=== PATIENT | female | born 1970 | race Caucasian/White ===

== ENCOUNTER 2017-01-31 10:04 | Day surgery (SDC) | payer BC, OTHER ==
[~2017-01-31 10:04] MED LIST: Lactated Ringers 1,000 ML IV SCH; Lidocaine 1%/Sod Bicarbonate in NS 8.4% 1 ML Syringe PRN; Sodium Chloride 0.9% 10 ML Syringe FLUSH PRN
[2017-01-31] MEDS ORDERED: Lidocaine 1% 4 ML ONE (11:36)
[2017-01-31] MEDS ORDERED: Propofol 200 MG/20 ML SDV ONE (11:36)
[2017-01-31] MEDS ORDERED: fentaNYL 100 MCG/2 ML SDV ONE (11:37)
[2017-01-31] MEDS ORDERED: Midazolam 1 MG/ML 2 ML SDV ONE (11:37)
--- NOTE | 2017-01-31 11:43 | PCM.PREANE ---
Preanesthetic Assessment - Anesthesia/Transfusion/Family Hx Anesthesia History: Prior Anesthesia Without Reaction Family History of Anesthesia Reaction: No Transfusion History: No Prior Transfusion(s) Intubation History: Unknown - Review of Systems General: No Symptoms Pulmonary: No Symptoms (history of asthma) Cardiovascular: No Symptoms Gastrointestinal: Difficulty swallowing (on occasion.) Neurological: No Symptoms (benign intracranial htn currently taking diomox.) Other: Reports: None - Physical Assessment NPO Status Date: 01/30/17 NPO Status Time: 20:00 Pulse: 62 O2 Sat by Pulse Oximetry: 96 Respiratory Rate: 18 Blood Pressure: 108/65 Temperature: 37.3 C Vital Signs: Last Vital Signs Temp 37.3 C 01/31/17 10:25 Pulse 62 01/31/17 10:25 Resp BP 108/65 01/31/17 10:25 Pulse Ox 96 01/31/17 10:25 Height: 1.68 m Weight: 122.924 kg ASA Class: 2 Mental Status: Alert & Oriented x3 Airway Class: Mallampati = 2 Dentition: Reports: Normal Dentition, Caries Thyro-Mental Finger Breadths: 3 Mouth Opening Finger Breadths: 3 ROM/Head Extension: Full Lungs: Clear to auscultation, Normal respiratory effort Cardiovascular: Regular Rate, Regular Rhythm, No Murmurs - Imaging/EKG Impressions: EKG: sinus rhythm rate= 61 - Allergies Allergies/Adverse Reactions: Allergies Allergy/AdvReac Type Severity Reaction Status Date / Time nut - unspecified Allergy Anaphylactic Verified 01/31/17 10:34 Shock - Anesthesia Plan Pre-Op Medication Ordered: None - Acknowledgements Anesthesia Type Planned: MAC Pt an Appropriate Candidate for the Planned Anesthesia: Yes Alternatives and Risks of Anesthesia Discussed w Pt/Guardian: Yes Pt/Guardian Understands and Agrees with Anesthesia Plan: Yes PreAnesthesia Questionnaire HEENT History: Reports: Allergic Rhinitis Cardiovascular History: Reports: None Respiratory History: Reports: Asthma, Bronchitis, Recurrent Gastrointestinal History: Reports: None 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: Musculoskeletal History: Reports: None Neurological History: Reports: Other (See Below) Other Neuro History: benign intracranial hypertension, pseudotumor cerebri Psychiatric History: Reports: None Endocrine/Metabolic History: Reports: Obesity/BMI 30+ Hematologic History: Reports: None Immunologic History: Reports: None Oncologic (Cancer) History: Reports: None Dermatologic History: Reports: None - Past Surgical History Head Surgeries/Procedures: Reports: None HEENT Surgical History: Reports: LASIK GI Surgical History: Reports: None Female Surgical History: Reports: Breast Reduction, Hysterectomy - SUBSTANCE USE Smoking Status *Q: Never Smoker Recreational Drug Use History: No - HOME MEDS Home Medications: Home Meds Albuterol [IJD: Ventolin HFA] 2 puff INH Q4H PRN 01/30/17 [History] Fluticasone/Salmeterol [Advair Diskus 100-50] 1 puff INH BID 01/30/17 [History] acetaZOLAMIDE [Diamox] 250 mg PO DAILY 01/30/17 [History] - CURRENT (IN HOUSE) MEDS Current Meds: Current Medications Lactated Ringer's (Ringers, Lactated) 1,000 mls @ 125 mls/hr IV ASDIRECTED CATRACHITO Stop: 01/31/17 23:00 Last Admin: 01/29/17 11:45 Dose: 125 mls/hr Lidocaine/Sodium Bicarbonate (Buffered Lidocaine 1% In Ns 8.4%) 0.25 ml .XX ONETIME PRN PRN Reason: Prior to IV Start Stop: 01/31/17 18:00 Sodium Chloride (Saline Flush) 10 ml FLUSH ASDIRECTED PRN PRN Reason: Keep Vein Open Stop: 01/31/17 18:00 Discontinued Medications Fentanyl (Sublimaze) Confirm Administered Dose 100 mcg .ROUTE .STK-MED ONE Stop: 01/31/17 11:38 Lidocaine HCl (Xylocaine-Mpf 1%) Confirm Administered Dose 4 mls @ as directed .ROUTE .STK-MED ONE Stop: 01/31/17 11:37 Midazolam HCl (Versed 1 Mg/Ml) Confirm Administered Dose 2 mg .ROUTE .STK-MED ONE Stop: 01/31/17 11:38 Propofol (Diprivan 20 Ml) Confirm Administered Dose 200 mg .ROUTE .STK-MED ONE Stop: 01/31/17 11:37
--- NOTE | 2017-01-31 12:19 | PCM48HPAN ---
Post Anesthesia Note - EVALUATION WITHIN 48HRS OF ANESTHETIC Vital Signs in Normal Range: Yes Patient Participated in Evaluation: Yes Respiratory Function Stable: Yes Airway Patent: Yes Cardiovascular Function Stable: Yes Hydration Status Stable: Yes Pain Control Satisfactory: Yes Nausea and Vomiting Control Satisfactory: Yes Mental Status Recovered: Yes
[2017-01-31 12:20] VITALS: BP 110/43
--- NOTE | 2017-01-31 12:25 | PCM.OPNOTE ---
- General Post-Op/Procedure Note Date of Surgery/Procedure: 01/31/17 Operative Procedure(s): Diagnostic EGD with cold forceps biopsy Pre Op Diagnosis: Dysphagia, choking episodes Post-Op Diagnosis: Gastritis Anesthesia Technique: MAC Primary Surgeon: Tracey Luo Anesthesia Provider: Sia Elliott Pathology: 1. Small bowel biopsy 2. Antral biopsy 3. Distal esophageal biopsy Fluid Replacement, Intraop: 600 (mL crystalloid ) EBL in mLs: 1 Complications: None Condition: Good Free Text/Narrative:: INDICATION OF PROCEDURE: The patient is a 46-year-old woman who is referred to me by Dr. Dione Amado for evaluation of dysphagia and choking episodes. EGD had been discussed with the patient and risks of the associated procedure. She is not currently taking a PPI. The patient found these risks acceptable and agreed to proceed. DESCRIPTION OF PROCEDURE: The patient was taken to the operating room and placed in the left lateral decubitus position. After induction of adequate sedation, a bite block was placed. A standard Olympus gastroscope was inserted into the oropharynx and guided down the esophagus without difficulty. The gastroesophageal junction was appreciated at 40 cm from the teeth. There was no evidence of stricture or esophageal ulcerations. The scope was advanced into the stomach, and there was mild gastritis around the antrum. The scope was passed into the proximal jejunum and the duodenum which were unremarkable. There were no petechiae or ulcerations. The proximal jejunum was grossly normal in appearance. Multiple cold forceps biopsies were obtained of the proximal jejunum and duodenum. The scope was withdrawn into the antrum, and additional cold forceps biopsies were obtained. The remainder of the gastric body was examined, and there were no further abnormalities. The scope was retroflexed, and there was no evidence of hiatal hernia. The scope was straightened and withdrawn to the GE junction. Additional cold forceps biopsies were obtained of the distal esophagus. The scope was withdrawn through the remainder of the esophagus and no further abnormalities were noted. The posterior oropharynx was grossly normal in appearance. The scope was then fully withdrawn. The patient was awakened from sedation and transferred to the recovery room in stable condition having tolerated the procedure well. POSTOPERATIVE PLAN: I discussed with the patient's my intraoperative findings and postoperative recommendations. The patient will follow up in approximately 2 weeks to discuss their pathology and how their symptoms are progressing. The patient is to start Prilosec daily and a GERD/gastritis diet. If for some reason her esophageal biopsies are completely unremarkable, as I do suspect eosinophilic esophagitis, I would recommend performing an esophagram. The patient is to call with any worsening of symptoms or questions prior to appointment.
== END 2017-01-31 13:00 | disposition home or self-care (01) ==
LOC: JD.SDS 10:04
PROVIDERS: ATTEND Surgery
DX: K29.70 Gastritis, unspecified, without bleeding (principal); R13.10 Dysphagia, unspecified; R09.89 Other specified symptoms and signs involving the circulatory and respiratory systems; J45.909 Unspecified asthma, uncomplicated; Z91.018 Allergy to other foods
CPT/HCPCS: 43239; 88305; 93005; J2250; J3010; J7120; J2704

== ENCOUNTER 2017-05-18 09:18 | Day surgery (SDC) | payer BC ==
[~2017-05-18 09:18] MED LIST changes: +Lidocaine 1% 50 ML MDV ONE
--- NOTE | 2017-05-18 10:19 | PCM.PREANE ---
Preanesthetic Assessment - Procedure Proposed Procedure: Open primary repair of left ruptured achilles tendon - Anesthesia/Transfusion/Family Hx Anesthesia History: Prior Anesthesia Without Reaction Type of Anesthesia Reaction: Other (see below) (patient was told with her last general anesthetic that she has a very difficult time breathing during surgery and during emergence about 13 years ) Family History of Anesthesia Reaction: No Transfusion History: No Prior Transfusion(s) Intubation History: Unknown - Review of Systems General: No Symptoms Pulmonary: Other (asthma) Cardiovascular: Other (mitral valve regurg) Gastrointestinal: No Symptoms Neurological: Other (intracranial HTN) Other: Reports: None - Physical Assessment NPO Status Date: 05/17/17 NPO Status Time: 21:00 Pulse: 66 O2 Sat by Pulse Oximetry: 100 Respiratory Rate: 16 Blood Pressure: 135/74 Temperature: 36.4 C Height: 1.68 m Weight: 121.109 kg ASA Class: 2 Mental Status: Alert & Oriented x3 Airway Class: Mallampati = 1 Dentition: Reports: Normal Dentition Thyro-Mental Finger Breadths: 3 Mouth Opening Finger Breadths: 3 ROM/Head Extension: Full Lungs: Clear to Auscultation, Normal Respiratory Effort Cardiovascular: Regular Rate, Regular Rhythm - Allergies Allergies/Adverse Reactions: Allergies Allergy/AdvReac Type Severity Reaction Status Date / Time nut - unspecified Allergy Anaphylactic Verified 05/17/17 13:59 Shock - Blood Blood Available: No Product(s) Available: None - Anesthesia Plan Pre-Op Medication Ordered: None - Acknowledgements Anesthesia Type Planned: Spinal (patient prefers spinal anesthetic due to hx of breathing problems post general anesthetic. Pt very insistent on spinal and is aware of longer recovery time. 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: Musculoskeletal History: Reports: None Neurological History: Reports: Other (See Below) Other Neuro History: benign intracranial hypertension, pseudotumor cerebri Psychiatric History: Reports: None Endocrine/Metabolic History: Reports: Obesity/BMI 30+ Hematologic History: Reports: None Immunologic History: Reports: None Oncologic (Cancer) History: Reports: None Dermatologic History: Reports: None - Past Surgical History Head Surgeries/Procedures: Reports: None HEENT Surgical History: Reports: LASIK Cardiovascular Surgical History: Reports: None Respiratory Surgical History: Reports: None GI Surgical History: Reports: None, EGD Female Surgical History: Reports: Breast Reduction, Hysterectomy Male Surgical History: Reports: None Endocrine Surgical History: Reports: None Musculoskeletal Surgical History: Reports: None Oncologic Surgical History: Reports: None Dermatological Surgical History: Reports: None - SUBSTANCE USE Smoking Status *Q: Never Smoker Second Hand Smoke Exposure: No Recreational Drug Use History: No - HOME MEDS Home Medications: Home Meds Albuterol [IJD: Ventolin HFA] 2 puff INH Q4H PRN 01/30/17 [History] Fluticasone/Salmeterol [Advair Diskus 100-50] 1 puff INH BID 01/30/17 [History] acetaZOLAMIDE [Diamox] 250 mg PO DAILY 01/30/17 [History] EPINEPHrine [Epipen] 1 dose IM ASDIRECTED PRN 05/17/17 [History] - CURRENT (IN HOUSE) MEDS Current Meds: Current Medications Lactated Ringer's (Ringers, Lactated) 1,000 mls @ 125 mls/hr IV ASDIRECTED CATRACHITO Stop: 05/18/17 23:00 Lidocaine/Sodium Bicarbonate (Buffered Lidocaine 1% In Ns 8.4%) 0.25 ml .XX ONETIME PRN PRN Reason: Prior to IV Start Stop: 05/18/17 18:00 Sodium Chloride (Saline Flush) 10 ml FLUSH ASDIRECTED PRN PRN Reason: Keep Vein Open Stop: 05/18/17 18:00 Discontinued Medications Bupivacaine HCl (Marcaine 0.5%) Confirm Administered Dose 30 ml .ROUTE .STK-MED ONE Stop: 05/18/17 09:19 Lidocaine HCl (Xylocaine 1%) Confirm Administered Dose 50 ml .ROUTE .STK-MED ONE Stop: 05/18/17 09:19
[2017-05-18] MEDS ORDERED: fentaNYL 100 MCG/2 ML SDV ONE ×2 (10:53→13:31)
[2017-05-18] MEDS ORDERED: Propofol 200 MG/20 ML SDV ONE ×3 (10:53→13:04)
[2017-05-18] MEDS ORDERED: Midazolam 1 MG/ML 2 ML SDV ONE (10:53)
[2017-05-18] MEDS: Bupivacaine 0.5% 30 ML SDV ONE ×2 (11:50→13:23)
[2017-05-18] MEDS ORDERED: Lactated Ringers 1,000 ML ONE (11:51)
[2017-05-18] MEDS ORDERED: HYDROmorphone 0.5 MG/0.5 ML Syringe IVPUSH PRN (13:15)
[2017-05-18] MEDS ORDERED: fentaNYL 100 MCG/2 ML SDV IVPUSH PRN (13:15)
[2017-05-18] MEDS ORDERED: Ondansetron 4 MG/2 ML SDV IVPUSH PRN (13:15)
[2017-05-18] MEDS ORDERED: Ondansetron 4 MG/2 ML SDV ONE (13:31)
--- NOTE | 2017-05-18 13:42 | PCM.POSTAN ---
POST ANESTHESIA ASSESSMENT - MENTAL STATUS Mental Status: Alert, Oriented - VITAL SIGNS Pulse Rate: 72 SaO2: 95 Resp Rate: 14 Blood Pressure: 118/74 Temperature: 36.6 C - RESPIRATORY Respiratory Status: Respiratory Rate WNL, Airway Patent, O2 Saturation Stable - CARDIOVASCULAR CV Status: Pulse Rate WNL, Blood Pressure Stable - GASTROINTESTINAL GI Status: No Symptoms - PAIN Pain Score: 0 - POST OP HYDRATION Hydration Status: Adequate & Stable
[2017-05-18] MEDS ORDERED: Acetaminophen/HYDROcodone 325-5 MG Tab PO PRN (14:20)
[2017-05-18 15:14] VITALS: BP 107/58
--- NOTE | 2017-05-22 13:39 | OR ---
DATE OF OPERATION: 05/18/2017 SURGEON: Kareem Spicer II, DPM LOCATION: [facility]. ANESTHESIA: Spinal with local block about the left Achilles tendon. ANESTHESIA PROVIDER: Kirit Crabtree CRNA. HEMOSTASIS: Left pneumatic thigh tourniquet at 300 mmHg pressure. PREOPERATIVE DIAGNOSIS: Painful and symptomatic acute spontaneous Achilles tendon rupture, left lower extremity. POSTOPERATIVE DIAGNOSIS: Painful and symptomatic acute spontaneous Achilles tendon rupture, left lower extremity. OPERATION PERFORMED: Open primary repair of Achilles tendon rupture, left ankle, with Graftjacket allograft. DESCRIPTION OF PROCEDURE: Upon arrival and admission to the hospital, the patient was examined and cleared for surgery by the assigned anesthesia provider. IV access was obtained in the preoperative area, where the patient received prophylactic antibiotics consisting of 3 grams of Ancef IV piggyback. The patient was then brought back to the OR via gurney and assisted with transfer onto the operating room table in the supine position. The patient was then prepared for spinal anesthesia. She was then seated in the upright position. After spinal anesthesia had been achieved, the patient was given a combination of sedations and was adequately sedated after she had been situated in the prone position for the surgery. The patient then received 10 mL of a 1:1 mixture of 1% lidocaine plain and 0.5% Marcaine plain in the form of a local infiltrative block about the left Achilles tendon in the area of the rupture. The left lower extremity had been padded with cotton padding in preparation for a nonsterile pneumatic thigh tourniquet, which was then draped with a sterile drape and secured with a towel clamp. The left lower extremity would then be prepped and draped in the usual aseptic manner. Left lower extremity would then be exsanguinated with the use of an Esmarch bandage before inflating the pneumatic ankle tourniquet to 300 mmHg pressure. The Esmarch bandage was removed. Attention was then directed to the left lower extremity at the level of the Achilles tendon rupture site being approximately 4 cm proximal to its insertion site. After all bony and soft tissue landmarks had been identified, a 6 cm longitudinal incision was made paramedial to the Achilles tendon from its insertion. Careful dissection was then taken down to the level of the paratenon. Once this was reached, full- thickness flaps were then performed medially and laterally. Next, retractor was placed and all neurovascular structures were protected and any superficial bleeders were cauterized or ligated as deemed necessary. Another longitudinal incision was then made in the paratenon and opened up to expose the tendon, where there was noted to be a complete rupture of the Achilles tendon approximately 4 cm proximal to the insertion point. The plantaris tendon was likewise ruptured as well. The Achilles tendon was debrided at this time of its hematoma as well as the frayed tendon ends from the rupture site. The wound was then copiously irrigated with normal saline solution. The appearance of the tendon lengths were in order and sufficient to do a primary repair. Next, 2-0 FiberWire on a tapered needle was then selected and a Krackow stitch was then performed. Two sutures were used during this time and then tied individually to reapproximate the tendon at the ruptured site. The tendon came together well and with a tight connection. 2-0 Vicryl suture was then used to close the paratenon over the Achilles tendon and a MaxForce Graftjacket was soaked in normal saline and then circumferentially administered and sutured overlying the rupture site with 3-0 Vicryl. The wound would then be copiously irrigated and lavaged and dried with normal saline solution. 3-0 Vicryl sutures were then utilized to close the skin and subcutaneous tissue with 3-0 Monocryl in the subcuticular closure of the skin. Steri-Strips were then placed over the wound and sterile dressings were applied consisting of 4x4, Kerlix, and a short-leg fiberglass splint in the plantar position was then applied. At this time, the Department of Anesthesia would work on reversing the anesthetic, and the left pneumatic thigh tourniquet was deflated and it was noted that digits 1 through 5 of the left lower extremity became pink indicating normal vascular perfusion had returned. The patient appeared to tolerate the procedure and anesthesia well and left the OR for Recovery with vital signs being stable and vascular status intact in digits 1 through 5 of the left lower extremity. In Recovery, the patient received written and oral postop instructions as well as postoperative pain medication. The patient will ambulate nonweightbearing with crutches, and her posterior splint about her left lower extremity. ESTIMATED BLOOD LOSS: Approximately 10 mL. COMPLICATIONS: There were no apparent or obvious complications. MMODAL /[id number]
== END 2017-05-18 16:55 | disposition home or self-care (01) ==
LOC: JD.SDS 09:18
PROVIDERS: ATTEND Podiatrist Foot & Ankle Surgery
DX: S86.012A Strain of left Achilles tendon, initial encounter (principal); E66.9 Obesity, unspecified; G93.2 Benign intracranial hypertension; J45.909 Unspecified asthma, uncomplicated; Z79.51 Long term (current) use of inhaled steroids; Z79.899 Other long term (current) drug therapy; Z91.018 Allergy to other foods; Z90.710 Acquired absence of both cervix and uterus; Z98.890 Other specified postprocedural states; Z68.41 Body mass index [BMI] 40.0-44.9, adult
CPT/HCPCS: 27652; 36415; 85025; A9270; J2250; J2405; J3010; J7120; 01472; J2704; Q4107

== ENCOUNTER 2020-11-24 07:04 | Day surgery (SDC) | payer SELFPAY ==
[~2020-11-24 07:04] MED LIST changes: -Lidocaine 1% 50 ML MDV ONE; +Lidocaine 1%/Sod Bicarbonate in NS 8.4% 1 ML Syringe IDERM PRN; -Lidocaine 1%/Sod Bicarbonate in NS 8.4% 1 ML Syringe PRN
[2020-11-24] MEDS ORDERED: Lidocaine 1% 30 ML SDV ONE (07:28)
[2020-11-24] MEDS ORDERED: Bupivacaine 0.5% 30 ML SDV ONE (07:28)
--- NOTE | 2020-11-24 07:39 | PCM.PREANE ---
Preanesthetic Assessment - Procedure Proposed Procedure: gastrocnemius resession right calf - Anesthesia/Transfusion/Family Hx Anesthesia History: Prior Anesthesia Reaction Type of Anesthesia Reaction: Other (see below) (asthma was a problem with ga- ) Family History of Anesthesia Reaction: No Transfusion History: No Prior Transfusion(s) Intubation History: Unknown - Review of Systems General: No Symptoms Pulmonary: No Symptoms Cardiovascular: No Symptoms Gastrointestinal: No Symptoms Neurological: No Symptoms Other: Reports: None - Physical Assessment NPO Status Date: 11/23/20 NPO Status Time: 18:00 Vital Signs: 130/70 65 95% 97.4 18 Height: 5 ft 6 in Weight: 122 kg ASA Class: 3 Mental Status: Alert & Oriented x3 Airway Class: Mallampati = 1 Dentition: Reports: Normal Dentition Thyro-Mental Finger Breadths: 3 Mouth Opening Finger Breadths: 3 ROM/Head Extension: Full Lungs: Clear to Auscultation, Normal Respiratory Effort Cardiovascular: Regular Rate, Regular Rhythm - Allergies Allergies/Adverse Reactions: Allergies Allergy/AdvReac Type Severity Reaction Status Date / Time alcohol Allergy Itching Verified 11/23/20 15:10 [From Mastisol Adhesive] gum mastic Allergy Itching Verified 11/23/20 15:10 [From Mastisol Adhesive] methyl salicylate Allergy Itching Verified 11/23/20 15:10 [From Mastisol Adhesive] nut - unspecified Allergy Anaphylactic Verified 11/23/20 15:10 Shock storax Allergy Itching Verified 11/23/20 15:10 [From Mastisol Adhesive] - Blood Blood Available: No - Acknowledgements Anesthesia Type Planned: Spinal, Regional Block Pt an Appropriate Candidate for the Planned Anesthesia: Yes Alternatives and Risks of Anesthesia Discussed w Pt/Guardian: Yes Pt/Guardian Understands and Agrees with Anesthesia Plan: Yes PreAnesthesia Questionnaire HEENT History: Reports: Allergic Rhinitis, Impaired Vision Cardiovascular History: Reports: Other (See Below) Other Cardiovascular History: benign intracranial hypertesion, mitral valve regurgitation Respiratory History: Reports: Asthma, Bronchitis, Recurrent Gastrointestinal History: Reports: Gastritis Genitourinary History: Reports: None 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 She prefers not GA- had lung issues with asthma at that time. Psychiatric History: Reports: None Endocrine/Metabolic History: Reports: Obesity/BMI 30+ Hematologic History: Reports: None Immunologic History: Reports: None Oncologic (Cancer) History: Reports: None Dermatologic History: Reports: None - Infectious Disease History Infectious Disease History: Reports: Novel Coronavirus, Other (See Below) Other Infectious Disease History: covid positive 03/2020 and 10/2020 - Past Surgical History Head Surgeries/Procedures: Reports: None HEENT Surgical History: Reports: LASIK Cardiovascular Surgical History: Reports: None Respiratory Surgical History: Reports: None GI Surgical History: Reports: EGD Female Surgical History: Reports: Breast Reduction, Hysterectomy Male Surgical History: Reports: None Endocrine Surgical History: Reports: None Neurological Surgical History: Reports: None Musculoskeletal Surgical History: Reports: Other (See Below) (left achilles tendon surgery) Oncologic Surgical History: Reports: None Dermatological Surgical History: Reports: None - SUBSTANCE USE Tobacco Use Status *Q: Never Tobacco User Tobacco Use Within Last Twelve Months: No Second Hand Smoke Exposure: No Days Per Week of Alcohol Use: 1 (rare) Recreational Drug Use History: No - HOME MEDS Home Medications: Home Meds Albuterol [IJD: Ventolin HFA] 2 puff INH Q4H PRN 01/30/17 [History] Fluticasone/Salmeterol [Advair Diskus 100-50] 1 puff INH BID 01/30/17 [History] acetaZOLAMIDE [Diamox] 250 mg PO DAILY 01/30/17 [History] EPINEPHrine [Epipen] 1 dose IM ASDIRECTED PRN 05/17/17 [History] - CURRENT (IN HOUSE) MEDS Current Meds: Current Medications Lactated Ringer's (Ringers, Lactated) 1,000 mls @ 125 mls/hr IV ASDIRECTED CATRACHITO Stop: 11/24/20 23:00 Lidocaine/Sodium Bicarbonate (Lidocaine 1%/Sod Bicarbonate In Ns 8.4% 1 Ml Syringe) 0.25 ml IDERM ONETIME PRN PRN Reason: Prior to IV Start Stop: 11/24/20 18:00 Sodium Chloride (Sodium Chloride 0.9% 10 Ml Syringe) 10 ml FLUSH ASDIRECTED PRN PRN Reason: Keep Vein Open Stop: 11/24/20 18:00 Discontinued Medications Bupivacaine HCl (Bupivacaine 0.5% 30 Ml Sdv) Confirm Administered Dose 30 ml .ROUTE .STK-MED ONE Stop: 11/24/20 07:29 Lactated Ringer's (Ringers, Lactated) 1,000 mls @ 125 mls/hr IV ASDIRECTED CATRACHITO Stop: 11/05/20 23:00 Lidocaine HCl (Lidocaine 1% 30 Ml Sdv) Confirm Administered Dose 30 ml .ROUTE .STK-MED ONE Stop: 11/24/20 07:29 Lidocaine/Sodium Bicarbonate (Lidocaine 1%/Sod Bicarbonate In Ns 8.4% 1 Ml Syringe) 0.25 ml IDERM ONETIME PRN PRN Reason: Prior to IV Start Stop: 11/05/20 18:00 Sodium Chloride (Sodium Chloride 0.9% 10 Ml Syringe) 10 ml FLUSH ASDIRECTED PRN PRN Reason: Keep Vein Open Stop: 11/05/20 18:00
[2020-11-24] MEDS ORDERED: fentaNYL 100 MCG/2 ML SDV ONE (07:51)
[2020-11-24] MEDS ORDERED: Midazolam 1 MG/ML 2 ML SDV ONE ×2 (07:51→08:19)
[2020-11-24] MEDS ORDERED: ceFAZolin 1 GM Vial ONE (07:51)
[2020-11-24] MEDS ORDERED: Propofol 200 MG/20 ML SDV ONE ×2 (07:51→08:29)
[2020-11-24] MEDS ORDERED: Lidocaine 1% 4 ML ONE (07:51)
[2020-11-24] MEDS ORDERED: Ketorolac 30 MG/ML SDV ONE (08:52)
[2020-11-24] MEDS ORDERED: fentaNYL 100 MCG/2 ML SDV IVPUSH PRN (09:04)
--- NOTE | 2020-11-24 09:05 | PCM48HPAN ---
Post Anesthesia Note - EVALUATION WITHIN 48HRS OF ANESTHETIC Vital Signs in Normal Range: Yes Patient Participated in Evaluation: Yes Respiratory Function Stable: Yes Airway Patent: Yes Cardiovascular Function Stable: Yes Hydration Status Stable: Yes Pain Control Satisfactory: Yes Nausea and Vomiting Control Satisfactory: Yes Mental Status Recovered: Yes (no complaints) Vital Signs: 0900 107/61 98% 70 14 97.4
--- NOTE | 2020-11-24 09:41 | PCM.OPNOTE ---
- General Post-Op/Procedure Note Date of Surgery/Procedure: 11/24/20 Operative Procedure(s): Gastrocnemius Intra-Muscular Aponeurosis Recession, RIGHT lower leg Pre Op Diagnosis: 1.) Painful/Symptomatic Achilles Tendonitis, RIGHT ankle. 2.) Painful/Symptomatic Gastrocnemius Equinus, RIGHT ankle Anesthesia Technique: MAC Primary Surgeon: Kareem Spicer II Anesthesia Provider: Mickey Mcfadden EBL in mLs: 5 Complications: None Condition: Good Free Text/Narrative:: Patient left the OR for recovery with vital signs stable & vascular status intact, digits 1-5 RIGHT lower extremity
[2020-11-24 10:06] VITALS: BP 128/58; PULSE 50
--- NOTE | 2020-11-24 16:28 | OR ---
DATE OF OPERATION: 11/24/2020 SURGEON: Kareem Spicer II, DPM LOCATION: [place], [place]. [employer]RATOR SURGEON: None. ANESTHESIA: MAC with local block, right lower extremity. ANESTHESIA PROVIDER: Mickey Mcfadden CRNA. HEMOSTASIS: Right pneumatic thigh tourniquet at 250 mmHg. PREOPERATIVE DIAGNOSIS: Painful and symptomatic ankle equinus, right lower extremity. POSTOPERATIVE DIAGNOSIS: Painful and symptomatic ankle equinus, right lower extremity. OPERATION PERFORMED: Gastrocnemius intramuscular aponeurosis recession, right lower leg. DESCRIPTION OF PROCEDURE: Upon arrival and admission to the hospital, patient was examined and cleared for surgery by the assigned anesthesia provider. IV access was obtained in the preoperative area, at which the patient was given prophylactic antibiotics consisting of 2 g of Ancef. The patient was assisted with transfer onto the operating room table in the supine position. The patient was given a combination of sedations and was adequately sedated before receiving a local infiltrative block of 10 mL of 1:1 mixture of 1% lidocaine plain and 0.5% Marcaine plain in the form of local infiltrative block about the medial aspect of the right calf muscle. Anesthesia was tested and an additional 10 mL of 0.5% Marcaine plain were injected. The right lower extremity was wrapped with cotton Webril padding for nonsterile pneumatic thigh tourniquet, which was then draped with a sterile drape. The right lower extremity was then prepped and draped in usual aseptic manner. Right lower extremity was then elevated and exsanguinated with the use of an Esmarch bandage before inflating the right pneumatic ankle tourniquet to 250 mmHg pressure. Esmarch bandage was removed. The right lower extremity was placed back to the level of operating room table. Attention was then directed to the medial extent of the right calf muscle where curvature being 2 fingerbreadths medial to the tibial crest. A controlled depth skin incision measuring 5 cm in length was created. This was a controlled depth skin incision taken down to the level of subcutaneous structures with care taken to retract the vital neurovascular structures within the area as well as to cauterize and/or ligate all superficial bleeders as deemed necessary. Continuous soft tissue dissection was taken down to the level of the fascia surrounding the gastrocs and soleus muscle bellies. An incision paralleling that of the skin was then created to bring into exposure the gastroc and soleus muscle bellies. Finger dissection and blunt dissection were then utilized to create a plane between the gastrocs and soleus muscles. A vaginal speculum was then introduced to allow for creation of a plane between the 2 tissue layers. A long arm 15 blade was then utilized to transect the aponeurosis of the gastrocnemius muscle from lateral to medial. The foot was then placed on maximal dorsiflexion at the ankle joint and this allowed for approximately 1 cm of lengthening to be engaged across the gastrocnemius muscle. The wound was then copiously lavaged with sterile saline solution and the speculum was removed as well as all other instrumentation. The fascial layer was closed with 3-0 Vicryl. Subcuticular layer was closed with 4-0 Vicryl and the skin was reapproximated with 5-0 Monocryl in a running subcuticular suture knots. Anesthesia consisted of an additional 10 mL of 0.5% Marcaine plain, and dressings would consist of a Betadine-soaked Adaptic gauze, 4 x 4 gauze, Bjorn, and an Benny bandage. Upon completion of the surgery, the right pneumatic thigh tourniquet was deflated, and it was noted digits 1 through 5 of the right lower extremity became pink indicating normal vascular perfusion had returned. There were no apparent or obvious complications in recovery. The patient appeared to tolerate the procedure nicely and anesthesia well and would then leave the OR for recovery with her vital signs being stable and vascular status intact digits 1 through 5 of the right lower extremity. In recovery, patient received written and oral postop instructions as well as postoperative pain medication. The patient will ambulate partial weightbearing within the confines of an immobilization boot. The immobilization boot was brought in by the patient from a previous surgery. The estimated blood loss for these procedures was less than 5 mL and considered negligible. There were no apparent or obvious complications. ESTIMATED BLOOD LOSS: MMODAL /[id number]
== END 2020-11-24 10:08 | disposition home or self-care (01) ==
LOC: JD.SDS 07:04
PROVIDERS: ATTEND Podiatrist Foot & Ankle Surgery
DX: M76.61 Achilles tendinitis, right leg (principal); M21.6X1 Other acquired deformities of right foot; J45.909 Unspecified asthma, uncomplicated; G93.2 Benign intracranial hypertension; E66.9 Obesity, unspecified; Z68.41 Body mass index [BMI] 40.0-44.9, adult; Z88.8 Allergy status to other drugs, medicaments and biological substances; Z86.16 Personal history of COVID-19; Z91.018 Allergy to other foods
CPT/HCPCS: 27687; J0690; J1885; J2250; J2704; J3010; J3490; J7120; 01474